=== PATIENT | male | born 1960 | race American Indian/Alaskan Native ===

== ENCOUNTER 2018-03-15 14:42 | Inpatient (IN) | payer BC, OTHER ==
[2018-03-15 15:35] LABS: Hematocrit 28.6 % (35.5-45.6); Hemoglobin 9.9 gm/dl (11.8-15.2); Mean Corpuscular HGB Conc 35 % (32-34); Mean Corpuscular Volume 95 fl (84-94); Platelet Count 374 K/mm3 (140-440); Red Cell Distribution Width 14.6 % (13.2-15.2)
[2018-03-15] MEDS ORDERED: NACL 0.9% 1000 ML 1,000 ML IV ONE (15:35)
[2018-03-15] MEDS ORDERED: PROTONIX IV ONE (15:37)
--- NOTE | 2018-03-15 15:40 | Emergency Department Report ---
Addendum entered and electronically signed by LUIS NEAL NP 03/15/18 17:12: NOTE- HR INC W AMBULATION WAS DETECTED AFTER 1 L NS PT UDPATED ON ADMIT Original Note: ED GI Bleed HPI - General Chief complaint: GI Bleed Stated complaint: BLOODY STOOL Time Seen by Provider: 03/15/18 15:21 Source: patient, RN notes reviewed, old records reviewed Mode of arrival: Ambulatory Limitations: No Limitations - History of Present Illness Initial comments: Patient is a 57-year-old -Portuguese male who comes to the ER today complaining of vomiting dark blood yesterday and dark stools today. He states that the vomiting was bright red and he has not vomited today. He states that the stool is black/dark purple. Patient drinks alcohol daily. He also endorses chest pain and shortness of breath with activity. He also has dizziness when changes position rapidly. He has a history of GI bleeding in the past. Also noted history for GERD and he takes Zantac [id number] as needed. MD complaint: coffee ground emesis, melena -: Sudden, days(s) Severity scale (0 -10): 0 Quality: painless Consistency: intermittent Improves with: none Worsens with: none Context: history of GI bleed, alcohol abuse Associated Symptoms: shortness of breath, weakness, other (chest pain) - Related Data Allergies Allergy/AdvReac Type Severity Reaction Status Date / Time No Known Allergies Allergy Verified 03/15/18 14:48 ED Review of Systems ROS: Stated complaint: BLOODY STOOL Other details as noted in HPI Comment: All other systems reviewed and negative Constitutional: denies: chills Eyes: denies: eye pain ENT: denies: throat pain Respiratory: denies: orthopnea Cardiovascular: chest pain, dyspnea on exertion Endocrine: denies: flushing Gastrointestinal: as per HPI, hematemesis, melena. denies: abdominal pain, nausea, vomiting, diarrhea, constipation Genitourinary: denies: urgency Musculoskeletal: denies: back pain Skin: denies: rash Neurological: as per HPI, weakness, other (dizzy) Psychiatric: denies: depression Hematological/Lymphatic: denies: easy bleeding ED Past Medical Hx - Past Medical History Hx GERD: Yes Additional medical history: HX GIB IN THE PAST. 2014 NO VARICIES ON EGD. DAILY ETOH - Surgical History Additional Surgical History: hernia - Family History Family history: no significant - Social History Smoking Status: Current Every Day Smoker Substance Use Type: Alcohol, Marijuana ED Physical Exam - General Limitations: No Limitations General appearance: alert, cachectic - Head Head exam: Present: atraumatic - Eye Eye exam: Present: normal appearance, PERRL Pupils: Present: normal accommodation - ENT ENT exam: Present: mucous membranes moist - Neck Neck exam: Present: normal inspection - Respiratory Respiratory exam: Present: normal lung sounds bilaterally - Cardiovascular Cardiovascular Exam: Present: regular rate, tachycardia (ON ADMIT), normal heart sounds - GI/Abdominal GI/Abdominal exam: Present: soft, normal bowel sounds. Absent: distended, tenderness, guarding, rebound, rigid, diminished bowel sounds - Rectal Rectal exam: Present: heme (+) stool, other (MAROON COLORED STOOL ON RECTAL EXAM; NO HEMORRHOIDS). Absent: hemorrhoids - Extremities Exam Extremities exam: Present: normal inspection, full ROM - Back Exam Back exam: Present: normal inspection, full ROM - Neurological Exam Neurological exam: Present: alert, oriented X3, normal gait - Psychiatric Psychiatric exam: Present: normal affect, normal mood - Skin Skin exam: Present: warm, dry, intact ED Course Vital Signs 03/15/18 14:51 Temperature 99.0 F Pulse Rate 116 H Respiratory 18 Rate Blood Pressure 110/75 [Left] O2 Sat by Pulse 100 Oximetry - Reevaluation(s) Reevaluation #1: 03/15/18 17:[address] RAMIREZ WHO WILL EVAL PATIENT ED Medical Decision Making - Lab Data Result diagrams: 03/15/18 15:17 03/15/18 15:17 - EKG Data -: EKG Interpreted by Ri EKG shows normal: sinus rhythm Rate: normal - EKG Data Interpretation: no acute changes - Medical Decision Making TO ER WITH HX VOMITING BLOOD AND DARK STOOLS DAILY ETOH HX GIB ZANTAC OTC AT HOME NO PCP ILL APPEARING STOOL HEME POS RECTAL VAULT WITH MAROON STOOLS PT WHILE LAYING HAS A HR IN 60'S WHEN HE IS STOOD AND AMBULATED HR TO 114 THIS IS CONSISTENT WITH HPI. PT STATES LONG HE RESTS HE IS OK BUT IF HE EVEN MOVES AND TURNS OVER IN BED HE HAS SOB. DISCUSSED WITH DR SANTOS 1640 DR RAMIREZ TO EVALUATE THE PATIENT Labs 0103/15/18 03/15/18 15:17 15:17 15:17 WBC 6.9 RBC 3.00 L Hgb 9.9 L Hct 28.6 L MCV 95 H MCH 33 H MCHC 35 H RDW 14.6 Plt Count 374 PT INR APTT Sodium 139 Potassium 4.4 Chloride 100.9 Carbon Dioxide 28 Anion Gap 15 BUN 25 H Creatinine 1.0 Estimated GFR > 60 BUN/Creatinine Ratio 25 Glucose 112 H Calcium 8.7 Total Bilirubin 0.20 AST 19 ALT 21 Alkaline Phosphatase 36 Troponin T < 0.010 Total Protein 5.8 L Albumin 3.7 L Albumin/Globulin Ratio 1.8 Lipase 27 Blood Type Antibody Screen 03/15/18 03/15/18 15:36 15:36 WBC RBC Hgb Hct MCV MCH MCHC RDW Plt Count PT 12.8 INR 0.92 APTT 21.3 L Sodium Potassium Chloride Carbon Dioxide Anion Gap BUN Creatinine Estimated GFR BUN/Creatinine Ratio Glucose Calcium Total Bilirubin AST ALT Alkaline Phosphatase Troponin T Total Protein Albumin Albumin/Globulin Ratio Lipase Blood Type A POSITIVE Antibody Screen Negative - Differential Diagnosis GIB Critical care attestation.: If time is entered above; I have spent that time in minutes in the direct care of this critically ill patient, excluding procedure time. ED Disposition Clinical Impression: GIB (gastrointestinal bleeding), ETOH abuse Disposition: DC-09 OP ADMIT IP TO THIS HOSP Is pt being admited?: Yes Does the pt Need Aspirin: No Condition: Stable Time of Disposition: 16:54
[2018-03-15 15:44] LABS: Alanine Aminotransferase 21 units/L (7-56); Albumin 3.7 g/dL (3.9-5); BUN/Creatinine Ratio 25; Blood Urea Nitrogen 25 mg/dL (9-20); Calcium 8.7 mg/dL (8.4-10.2); Hemolysis Index 1
[2018-03-15 16:01] LABS: INR 0.92 (0.87-1.13); Partial Thromboplastin Time 21.3 Sec. (24.2-36.6)
--- NOTE | 2018-03-15 16:38 | Emergency Department Report ---
Blank Doc - Documentation Documentation: Patient is a 57-year-old alcoholic who is here secondary to GI bleed. Patient's hemoglobin is above the threshold for emergent transfusion however patient does have signs of active bleed at this time. Patient's heart rate is within normal limits with lying still however with standing and walking he was very tachycardic. Patient to be admitted to the hospitalist at this time.
[2018-03-15] MEDS ORDERED: VITAMIN B-1 100 MG, FOLVITE 1 MG, INFUVITE 10 ML in NACL 0.9% 1000 ML 1,000 ML IV ONE (17:13)
--- NOTE | 2018-03-15 22:00 | XRay Report ---
FINAL REPORT EXAM: XR CHEST ROUTINE 2V HISTORY: pain TECHNIQUE: 2 views of the chest. PRIORS: None. FINDINGS: The cardiomediastinal silhouette appears normal. The lungs are clear. The bones and soft tissues are unremarkable. IMPRESSION: No evidence of acute cardiopulmonary disease
[2018-03-15] MEDS ORDERED: ZOFRAN IV PRN (23:40)
[2018-03-15] MEDS ORDERED: SODIUM CHLORIDE FLUSH SYRINGE 10 ML IV PRN (23:40)
[2018-03-15] MEDS ORDERED: DILAUDID IV PRN (23:40)
[2018-03-15] MEDS ORDERED: REGLAN PO PRN (23:40)
[2018-03-15] MEDS ORDERED: TYLENOL PO PRN (23:40)
--- NOTE | 2018-03-15 23:40 | History and Physical Report ---
History of Present Illness Date of examination: 03/15/18 Date of admission: 03/15/18 18:33 Chief complaint: Vomiting blood and dark stools since yesterday History of present illness: 57-year-old -[place]in[place] male who comes to the ER complaining of vomiting dark blood yesterday and dark stools today. He states that the vomiting was bright red and he has not vomited today. He states that the stool is black. Patient drinks alcohol daily. He also endorses chest pain and shortness of breath with activity.History of GI bleeding in the past. Feels light headed on standing.No syncope. Past Medical History Hx GERD: Yes Additional medical history: HX GIB IN THE PAST. 2014 NO VARICIES ON EGD. DAILY ETOH Surgical History Additional Surgical History: hernia Family History Family history: no significant Social History Smoking Status: Current Every Day Smoker Substance Use Type: Alcohol every day Marijuana Review of Systems ROS: Stated complaint: BLOODY STOOL Other details as noted in HPI Comment: All other systems reviewed and negative Constitutional: denies: chills Eyes: denies: eye pain ENT: denies: throat pain Respiratory: denies: orthopnea Cardiovascular: chest pain, dyspnea on exertion Endocrine: denies: flushing Gastrointestinal: as per HPI, hematemesis, melena. denies: abdominal pain, nausea, vomiting, diarrhea, constipation Genitourinary: denies: urgency Musculoskeletal: denies: back pain Skin: denies: rash Neurological: as per HPI, weakness, other (dizzy) Psychiatric: denies: depression Hematological/Lymphatic: denies: easy bleeding Medications and Allergies Allergies Allergy/AdvReac Type Severity Reaction Status Date / Time No Known Allergies Allergy Verified 03/15/18 14:48 Exam - Constitutional Vitals: Temp Pulse Resp BP Pulse Ox 98.6 F 86 20 94/58 96 03/15/18 21:03 03/15/18 21:03 03/15/18 21:03 03/15/18 21:03 03/15/18 21:03 General appearance: Present: no acute distress, well-nourished - EENT Eyes: Present: PERRL ENT: hearing intact, clear oral mucosa - Neck Neck: Present: supple, normal ROM - Respiratory Respiratory effort: normal Respiratory: bilateral: CTA - Cardiovascular Heart rate: 66 Rhythm: regular Heart Sounds: Present: S1 & S2. Absent: rub, click - Extremities Extremities: pulses symmetrical, No edema Peripheral Pulses: within normal limits - Abdominal General gastrointestinal: Present: soft, non-tender, non-distended, normal bowel sounds Male genitourinary: Present: normal - Rectal Rectal Exam: stool dark (OB positive) - Integumentary Integumentary: Present: clear, warm, dry - Musculoskeletal Musculoskeletal: gait normal, strength equal bilaterally - Psychiatric Psychiatric: appropriate mood/affect, intact judgment & insight - Neurologic Neurologic: CNII-XII intact, moves all extremities - Allied Health Allied health notes reviewed: nursing, case management Results - Labs CBC & Chem 7: 03/16/18 04:03 03/16/18 04:03 Labs: Laboratory Last Values WBC 6.9 K/mm3 (4.5-11.0) 03/15/18 15:17 RBC 3.00 M/mm3 (3.65-5.03) L 03/15/18 15:17 Hgb 9.9 gm/dl (11.8-15.2) L 03/15/18 15:17 Hct 28.6 % (35.5-45.6) L 03/15/18 15:17 MCV 95 fl (84-94) H 03/15/18 15:17 MCH 33 pg (28-32) H 03/15/18 15:17 MCHC 35 % (32-34) H 03/15/18 15:17 RDW 14.6 % (13.2-15.2) 03/15/18 15:17 Plt Count 374 K/mm3 (140-440) 03/15/18 15:17 PT 12.8 Sec. (12.2-14.9) 03/15/18 15:36 INR 0.92 (0.87-1.13) 03/15/18 15:36 APTT 21.3 Sec. (24.2-36.6) L 03/15/18 15:36 Sodium 139 mmol/L (137-145) 03/15/18 15:17 Potassium 4.4 mmol/L (3.6-5.0) 03/15/18 15:17 Chloride 100.9 mmol/L (98-107) 03/15/18 15:17 Carbon Dioxide 28 mmol/L (22-30) 03/15/18 15:17 Anion Gap 15 mmol/L 03/15/18 15:17 BUN 25 mg/dL (9-20) H 03/15/18 15:17 Creatinine 1.0 mg/dL (0.8-1.5) 03/15/18 15:17 Estimated GFR > 60 ml/min 03/15/18 15:17 BUN/Creatinine Ratio 25 % 03/15/18 15:17 Glucose 112 mg/dL (75-100) H 03/15/18 15:17 Calcium 8.7 mg/dL (8.4-10.2) 03/15/18 15:17 Total Bilirubin 0.20 mg/dL (0.1-1.2) 03/15/18 15:17 AST 19 units/L (5-40) 03/15/18 15:17 ALT 21 units/L (7-56) 03/15/18 15:17 Alkaline Phosphatase 36 units/L (35-129) 03/15/18 15:17 Troponin T < 0.010 ng/mL (0.00-0.029) 03/15/18 15:17 Total Protein 5.8 g/dL (6.3-8.2) L 03/15/18 15:17 Albumin 3.7 g/dL (3.9-5) L 03/15/18 15:17 Albumin/Globulin Ratio 1.8 % 03/15/18 15:17 Lipase 27 units/L (13-60) 03/15/18 15:17 Blood Type A POSITIVE 03/15/18 15:36 Antibody Screen Negative 03/15/18 15:36 - Imaging and Cardiology EKG: report reviewed (NSR 66/min) Chest x-ray: report reviewed (NAF) Assessment and Plan Advance Directives: Yes (Full code) VTE prophylaxis?: Mechanical Plan of care discussed with patient/family: Yes - Patient Problems (1) Upper GI bleed Current Visit: No Status: Acute Plan to address problem: IV protonix and monitor H/htransfuse if necessary GI consult (2) EtOH dependence Current Visit: Yes Status: Chronic Qualifiers: Substance use status: unspecified alcohol-induced disorder Qualified Code(s): F10.29 - Alcohol dependence with unspecified alcohol-induced disorder Plan to address problem: CIWA protocol to prevent DT's (3) Symptomatic anemia Current Visit: No Status: Acute Plan to address problem: Transfuse one unit prbc (4) GERD (gastroesophageal reflux disease) Current Visit: Yes Status: Acute (5) GERD (gastroesophageal reflux disease) Current Visit: Yes Status: Chronic Qualifiers: Esophagitis presence: with esophagitis Qualified Code(s): K21.0 - Gastro- esophageal reflux disease with esophagitis Plan to address problem: PPI's (6) DVT prophylaxis Current Visit: Yes Status: Acute Plan to address problem: On Scd's
[2018-03-15] MEDS ORDERED: ATIVAN IV PRN ×3 (23:45)
[2018-03-15] MEDS ORDERED: LIBRIUM PO PRN ×2 (23:45)
[2018-03-16] MEDS: PROTONIX IV SCH ×3 (00:22→21:38)
[2018-03-16] MEDS: NACL 0.9% 1000 ML 1,000 ML IV SCH ×2 (00:23→15:20)
[2018-03-16 00:31] LABS: Hemoglobin 8.1 gm/dl (11.8-15.2)
[2018-03-16 02:42] LABS: Bilirubin,Urine NEG (Negative); Blood,Urine NEG (Negative); Color,Urine Yellow (Yellow); Mucus,Urine 1+ /HPF; Protein,Urine <15 mg/dL mg/dL (Negative); RBC,Urine < 1.0 /HPF (0.0-6.0); Urobilinogen,Urine < 2.0 mg/dL (<2.0)
[2018-03-16 05:46] LABS: Mean Corpuscular HGB Conc 35 % (32-34); Mean Corpuscular Volume 98 fl (84-94); Platelet Count 316 K/mm3 (140-440); Red Blood Count 2.35 M/mm3 (3.65-5.03)
[2018-03-16 06:04] LABS: Alanine Aminotransferase 17 units/L (7-56); Albumin 2.9 g/dL (3.9-5); BUN/Creatinine Ratio 30; Blood Urea Nitrogen 21 mg/dL (9-20); Calcium 7.7 mg/dL (8.4-10.2); Hemolysis Index 7
[2018-03-16] MEDS ORDERED: NACL 0.9% 500 ML 500 ML IV NR (08:00)
[2018-03-16] MEDS: SODIUM CHLORIDE FLUSH SYRINGE 10 ML IV SCH ×2 (09:20→21:38)
--- NOTE | 2018-03-16 10:45 | Gastroenterology Consultation ---
Addendum entered and electronically signed by TAWANA GIVENS MD 03/16/18 15:17: pt seen and examined, chart reviewed, consult below reviewed - pt presents w/ signs possible GI bleed, denies other complaints - denies other complaints vss p.e.: nad abd: soft, nt, ns - plan EGD/colonoscopy in am - other rec as below Original Note: History of Present Illness - Reason for Consult Consult date: 03/16/18 GI bleed Requesting physician: ELISEO RITCHIE - History of Present Illness Patient is a 57 y/o male with PMH of ETOH abuse who presented to ED with c/o vomiting blood and blood in stool to which GI has been consulted. This morning patient was resting in bed w/o acute distress. He reports vomiting x 1 episode on Wednesday with bright red blood, along with seeing dark red blood in stool. No active signs of bleeding overnight or this am per pt/nursing. Denies fever, CP, SOB, abd pain, N/V, dysphagia, diarrhea, or constipation. No NSAID use. No hx of PUD or known liver disease but admits to heavy daily alcohol consumption. Patient is previously known to our service from similar symptoms in 2014. He underwent an EGD at this time that showed an irregular Z-line but no ulcer or varices. An outpatient colonoscopy was recommended, however he did not follow up with having procedure done as an outpatient. No known Fhx of GI cancers. Past History Past Medical History: GERD Past Surgical History: hernia repair, Other (EGD 2014) Social history: smoking, alcohol abuse, other (Marijuana) Family history: diabetes, hypertension Medications and Allergies Allergies Allergy/AdvReac Type Severity Reaction Status Date / Time No Known Allergies Allergy Verified 03/15/18 14:48 Active Meds: Active Medications Acetaminophen (Tylenol) 650 mg PO Q4H PRN PRN Reason: Pain MILD(1-3)/Fever >100.5/TAN Chlordiazepoxide HCl (Librium) 100 mg PO Q1H PRN PRN Reason: CIWA-Ar 16-25 Chlordiazepoxide HCl (Librium) 50 mg PO Q1H PRN PRN Reason: CIWA-Ar 8-15 Hydromorphone HCl (Dilaudid) 0.5 mg IV Q3H PRN PRN Reason: Pain , Severe (7-10) Sodium Chloride (Nacl 0.9% 1000 Ml) 1,000 mls @ 100 mls/hr IV DIRECT [facility] Last Admin: 03/16/18 00:23 Dose: 100 mls/hr Documented by: Sodium Chloride (Nacl 0.9% 500 Ml) 500 mls @ 0 mls/hr IV ONCE NR Stop: 03/16/18 18:59 Last Admin: 03/16/18 09:19 Dose: 50 mls/hr Documented by: Lorazepam (Ativan) 2 mg IV Q1H PRN PRN Reason: CIWA-Ar 8-15 Lorazepam (Ativan) 4 mg IV Q1H PRN PRN Reason: CIWA-Ar 16-25 Lorazepam (Ativan) 4 mg IV Q15MIN PRN PRN Reason: CIWA-Ar >25 Metoclopramide HCl (Reglan) 10 mg PO Q6H PRN PRN Reason: Nausea And Vomiting Ondansetron HCl (Zofran) 4 mg IV Q3H PRN PRN Reason: Nausea And Vomiting Pantoprazole Sodium (Protonix) 40 mg IV BID [facility] Last Admin: 03/16/18 09:19 Dose: 40 mg Documented by: Sodium Chloride (Sodium Chloride Flush Syringe 10 Ml) 10 ml IV BID [facility] Last Admin: 03/16/18 09:20 Dose: 10 ml Documented by: Sodium Chloride (Sodium Chloride Flush Syringe 10 Ml) 10 ml IV PRN PRN PRN Reason: LINE FLUSH medications reviewed/updated as required Review of Systems - Review of Systems All systems: negative Gastrointestinal: hematemesis, other (blood in stool) Exam - Constitutional Vital Signs: Temp Pulse Resp BP Pulse Ox 98.0 F 66 20 86/53 100 03/16/18 04:14 03/16/18 04:14 03/16/18 04:14 03/16/18 04:14 03/16/18 04:14 General appearance: no acute distress - EENT Eyes: PERRL, EOM intact ENT: hearing intact - Respiratory Respiratory: bilateral: CTA - Cardiovascular Rhythm: regular Heart Sounds: Present: S1 & S2 - Gastrointestinal General gastrointestinal: Present: soft, non-tender, non-distended, normal bowel sounds - Neurologic Neurological: alert and oriented x3 - Labs CBC & Chem 7: 03/16/18 04:03 03/16/18 04:03 Lab Results: Laboratory Results - last 24 hr 03/15/18 03/15/18 03/15/18 15:17 15:17 15:17 WBC 6.9 RBC 3.00 L Hgb 9.9 L Hct 28.6 L MCV 95 H MCH 33 H MCHC 35 H RDW 14.6 Plt Count 374 Lymph % (Auto) [place] % (Auto) Eos % (Auto) Baso % (Auto) Lymph # [place] # Eos # Baso # Seg Neutrophils % Seg Neutrophils # PT INR APTT Sodium 139 Potassium 4.4 Chloride 100.9 Carbon Dioxide 28 Anion Gap 15 BUN 25 H Creatinine 1.0 Estimated GFR > 60 BUN/Creatinine Ratio 25 Glucose 112 H Hemoglobin A1c Calcium 8.7 Total Bilirubin 0.20 AST 19 ALT 21 Alkaline Phosphatase 36 Troponin T < 0.010 Total Protein 5.8 L Albumin 3.7 L Albumin/Globulin Ratio 1.8 Lipase 27 Urine Color Urine Turbidity Urine pH Ur Specific [place] Urine Protein Urine Glucose (UA) Urine Ketones Urine Blood Urine Nitrite Urine Bilirubin Urine Urobilinogen Ur Leukocyte Esterase Urine WBC (Auto) Urine RBC (Auto) U Epithel Cells (Auto) Urine Mucus Blood Type Antibody Screen Crossmatch 03/15/18 03/15/18 03/15/18 15:36 15:36 Unknown WBC RBC Hgb Hct MCV MCH MCHC RDW Plt Count Lymph % (Auto) [place] % (Auto) Eos % (Auto) Baso % (Auto) Lymph # [place] # Eos # Baso # Seg Neutrophils % Seg Neutrophils # PT 12.8 INR 0.92 APTT 21.3 L Sodium Potassium Chloride Carbon Dioxide Anion Gap BUN Creatinine Estimated GFR BUN/Creatinine Ratio Glucose Hemoglobin A1c Calcium Total Bilirubin AST ALT Alkaline Phosphatase Troponin T Total Protein Albumin Albumin/Globulin Ratio Lipase Urine Color Yellow Urine Turbidity Clear Urine pH 5.0 Ur Specific [place] 1.024 Urine Protein <15 mg/dl Urine Glucose (UA) Neg Urine Ketones Neg Urine Blood Neg Urine Nitrite Neg Urine Bilirubin Neg Urine Urobilinogen < 2.0 Ur Leukocyte Esterase Neg Urine WBC (Auto) 2.0 Urine RBC (Auto) < 1.0 U Epithel Cells (Auto) < 1.0 Urine Mucus 1+ Blood Type A POSITIVE Antibody Screen Negative Crossmatch See Detail 03/16/18 03/16/18 03/16/18 00:23 04:03 04:03 WBC 6.1 RBC 2.35 L Hgb 8.1 L 8.0 L Hct 24.0 L 23.0 L MCV 98 H MCH 34 H MCHC 35 H RDW 15.0 Plt Count 316 Lymph % (Auto) Coater Operator [place] % (Auto) Coater Operator Eos % (Auto) Coater Operator Baso % (Auto) Coater Operator Lymph # Coater Operator [place]att # Coater Operator Eos # Coater Operator Baso # Coater Operator Seg Neutrophils % Coater Operator Seg Neutrophils # Coater Operator PT INR APTT Sodium 137 Potassium 4.0 Chloride 106.3 Carbon Dioxide 24 Anion Gap 11 BUN 21 H Creatinine 0.7 L Estimated GFR > 60 BUN/Creatinine Ratio 30 Glucose 98 Hemoglobin A1c Calcium 7.7 L Total Bilirubin < 0.20 AST 16 ALT 17 Alkaline Phosphatase 31 L Troponin T Total Protein 4.8 L Albumin 2.9 L Albumin/Globulin Ratio 1.5 Lipase Urine Color Urine Turbidity Urine pH Ur Specific [place] Urine Protein Urine Glucose (UA) Urine Ketones Urine Blood Urine Nitrite Urine Bilirubin Urine Urobilinogen Ur Leukocyte Esterase Urine WBC (Auto) Urine RBC (Auto) U Epithel Cells (Auto) Urine Mucus Blood Type Antibody Screen Crossmatch 03/16/18 04:03 WBC RBC Hgb Hct MCV MCH MCHC RDW Plt Count Lymph % (Auto) [place] % (Auto) Eos % (Auto) Baso % (Auto) Lymph # [place] # Eos # Baso # Seg Neutrophils % Seg Neutrophils # PT INR APTT Sodium Potassium Chloride Carbon Dioxide Anion Gap BUN Creatinine Estimated GFR BUN/Creatinine Ratio Glucose Hemoglobin A1c 5.5 Calcium Total Bilirubin AST ALT Alkaline Phosphatase Troponin T Total Protein Albumin Albumin/Globulin Ratio Lipase Urine Color Urine Turbidity Urine pH Ur Specific [place] Urine Protein Urine Glucose (UA) Urine Ketones Urine Blood Urine Nitrite Urine Bilirubin Urine Urobilinogen Ur Leukocyte Esterase Urine WBC (Auto) Urine RBC (Auto) U Epithel Cells (Auto) Urine Mucus Blood Type Antibody Screen Crossmatch Assessment and Plan 1.GI bleed (hematemesis/blood in stool) 2.anemia-chronic 3.ETOH abuse -plt WNL (316),INR 0.92 -LFTs WNL, BUN 21 -H/H 8.0/23.0 (H/H similar to labs in 2015) -continue to monitor H/H and transfuse as needed -hold blood thinning medications -patient reports vomiting bright red blood on Wednesday along with dark red blood in stool -no active signs of bleeding overnight or this am per pt/nursing-currently HD stable -EGD 2014 showed irregular z-line -etiology- likely upper source (ulcer vs varies vs other) vs lower source -will schedule for EGD/colonoscopy tomorrow -continue PPI -start on octreotide -okay to clears today, then NPO after MN -continue supportive care -will follow
[2018-03-16] MEDS ORDERED: SandoSTATIN 500 MCG in NACL 0.9% 100 ML IV SCH (13:00)
--- NOTE | 2018-03-16 14:50 | Progress Note ---
Assessment and Plan Assessment and plan: Acute blood loss anemia 2/2 GI bleed - H&H is stable - Continue blood transfusion at this time - monitor H/H GI bleed - Vision disease on PPI - Clear liquid diet - GI consulted and will do EGD and colonoscopy tomorrow, nothing by mouth after midnight, bowel prep DVT prophylaxis - On SCDs because of Gi bleed Disposition - Continue patient care History Interval history: Patient was seen and evaluated this morning, patient didn't have hematemesis or hematochezia. Hospitalist Physical - Physical exam Narrative exam: Not in cardiopulmonary distress. The patient appeared well nourished and normally developed. Vital signs as documented. Head exam is unremarkable. No scleral icterus . Neck is without jugular venous distension, thyromegaly, or carotid bruits. Lungs are clear to auscultation. Cardiac exam reveals regular rate and Rhythm. First and second heart sounds normal. No murmurs, rubs or gallops. Abdominal exam reveals normal bowel sounds, no masses, no organomegaly and no aortic enlargement. Extremities are nonedematous and both femoral and pedal pulses are normal. 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 No focal weakness. - Constitutional Vitals: Temp Pulse Resp BP Pulse Ox 97.5 F L 72 16 94/62 100 03/16/18 13:30 03/16/18 13:30 03/16/18 13:30 03/16/18 13:30 03/16/18 04:14 General appearance: Present: no acute distress, well-nourished Results - Labs CBC & Chem 7: 03/16/18 04:03 03/16/18 04:03 Labs: Laboratory Last Values WBC 6.1 K/mm3 (4.5-11.0) 03/16/18 04:03 RBC 2.35 M/mm3 (3.65-5.03) L 03/16/18 04:03 Hgb 8.0 gm/dl (11.8-15.2) L 03/16/18 04:03 Hct 23.0 % (35.5-45.6) L 03/16/18 04:03 MCV 98 fl (84-94) H 03/16/18 04:03 MCH 34 pg (28-32) H 03/16/18 04:03 MCHC 35 % (32-34) H 03/16/18 04:03 RDW 15.0 % (13.2-15.2) 03/16/18 04:03 Plt Count 316 K/mm3 (140-440) 03/16/18 04:03 Lymph % (Auto) Lime Mixer Tender 03/16/18 04:03 [place] % (Auto) Lime Mixer Tender 03/16/18 04:03 Eos % (Auto) Lime Mixer Tender 03/16/18 04:03 Baso % (Auto) Lime Mixer Tender 03/16/18 04:03 Lymph # Lime Mixer Tender 03/16/18 04:03 [place] # Lime Mixer Tender 03/16/18 04:03 Eos # Lime Mixer Tender 03/16/18 04:03 Baso # Lime Mixer Tender 03/16/18 04:03 Seg Neutrophils % Lime Mixer Tender 03/16/18 04:03 Seg Neutrophils # Lime Mixer Tender 03/16/18 04:03 PT 12.8 Sec. (12.2-14.9) 03/15/18 15:36 INR 0.92 (0.87-1.13) 03/15/18 15:36 APTT 21.3 Sec. (24.2-36.6) L 03/15/18 15:36 Sodium 137 mmol/L (137-145) 03/16/18 04:03 Potassium 4.0 mmol/L (3.6-5.0) 03/16/18 04:03 Chloride 106.3 mmol/L (98-107) 03/16/18 04:03 Carbon Dioxide 24 mmol/L (22-30) 03/16/18 04:03 Anion Gap 11 mmol/L 03/16/18 04:03 BUN 21 mg/dL (9-20) H 03/16/18 04:03 Creatinine 0.7 mg/dL (0.8-1.5) L 03/16/18 04:03 Estimated GFR > 60 ml/min 03/16/18 04:03 BUN/Creatinine Ratio 30 % 03/16/18 04:03 Glucose 98 mg/dL (75-100) 03/16/18 04:03 Hemoglobin A1c 5.5 % (4-6) 03/16/18 04:03 Calcium 7.7 mg/dL (8.4-10.2) L 03/16/18 04:03 Total Bilirubin < 0.20 mg/dL (0.1-1.2) 03/16/18 04:03 AST 16 units/L (5-40) 03/16/18 04:03 ALT 17 units/L (7-56) 03/16/18 04:03 Alkaline Phosphatase 31 units/L (35-129) L 03/16/18 04:03 Troponin T < 0.010 ng/mL (0.00-0.029) 03/15/18 15:17 Total Protein 4.8 g/dL (6.3-8.2) L 03/16/18 04:03 Albumin 2.9 g/dL (3.9-5) L 03/16/18 04:03 Albumin/Globulin Ratio 1.5 % 03/16/18 04:03 Lipase 27 units/L (13-60) 03/15/18 15:17 Urine Color Yellow (Yellow) 03/15/18 Unknown Urine Turbidity Clear (Clear) 03/15/18 Unknown Urine pH 5.0 (5.0-7.0) 03/15/18 Unknown Ur Specific [place] 1.024 (1.003-1.030) 03/15/18 Unknown Urine Protein <15 mg/dl mg/dL (Negative) 03/15/18 Unknown Urine Glucose (UA) Neg mg/dL (Negative) 03/15/18 Unknown Urine Ketones Neg mg/dL (Negative) 03/15/18 Unknown Urine Blood Neg (Negative) 03/15/18 Unknown Urine Nitrite Neg (Negative) 03/15/18 Unknown Urine Bilirubin Neg (Negative) 03/15/18 Unknown Urine Urobilinogen < 2.0 mg/dL (<2.0) 03/15/18 Unknown Ur Leukocyte Esterase Neg (Negative) 03/15/18 Unknown Urine WBC (Auto) 2.0 /HPF (0.0-6.0) 03/15/18 Unknown Urine RBC (Auto) < 1.0 /HPF (0.0-6.0) 03/15/18 Unknown U Epithel Cells (Auto) < 1.0 /HPF (0-13.0) 03/15/18 Unknown Urine Mucus 1+ /HPF 03/15/18 Unknown Blood Type A POSITIVE 03/15/18 15:36 Antibody Screen Negative 03/15/18 15:36 Crossmatch See Detail 03/15/18 15:36 Nutrition/Malnutrition Assess - Dietary Evaluation Nutrition/Malnutrition Findings: Nutrition Notes Start: 03/16/18 13:32 Freq: Status: Active Protocol: Document 03/16/18 13:32 RAYSA (Rec: 03/16/18 13:40 RAYSA [email or web address] [email or web address]) Nutrition Notes Need for Assessment generated from: dupligraph operator MST Initial or Follow up Assessment Other Pertinent Diagnosis Upper GIB, anemia, EtOH abuse Current Diet Cl liq Labs/Tests Reviewed Pertinent Medications Reviewed Height 5 ft 6 in Weight 71.2 kg Usual Body Weight 75 kg [place] Body Weight (kg) 64.54 BMI 25.3 Intake Prior to Admission Good Weight change and time frame Pt reports unintentional 5% wt loss over past month Weight Status Appropriate Subjective/Other Information Pt screened for malnutrition risk (wt loss, poor PO intake/ appetite). He reports good appetite though. Currently on CIWA protocol. GI consulted. Pt with poor dentition at bottom, but reports no chewing difficulty. Burn Absent Trauma Absent GI Symptoms None Food Allergy No Skin Integrity/Comment Jeff[place] 22 Current % PO Negligible Interpretation of Weight Loss (non- 5% in 1 month severe) Fluid Accumulation N/A Reduced Activity Therapist Strength N/A (non-severe) Protein-Calorie Malnutrition N\A #1 Nutrition Diagnosis Unintended weight loss Etiology hx of EtOH dependence As Evidenced by Signs and Symptoms pt with 5% wt loss over past month Is patient on ventilator? No Is Patient Ambulatory and/or Out of Bed Yes REE-([facility]-ambulatory/OOB) [ 1936.675 NUTR.[id number]] Calculation [facility] for [facility]ations [facility] Additional Notes Pro needs 0.8-1g/k-71g/ day Fluid needs 1ml/kcal Nutrition Intervention Change Diet Order: Advance diet when medically feasible Goal #1 Diet advancement to meet nutrient needs Goal #2 Wt maintenance Anticipated Discharge Needs: None identified at this time Follow-Up By: 03/18/18 Additional Comments F/U: diet advancement, GI consult/POC
[2018-03-16 16:51] LABS: Hemoglobin 8.7 gm/dl (11.8-15.2)
[2018-03-16 22:59] LABS: Hematocrit 25.7 % (35.5-45.6); Hemoglobin 8.6 gm/dl (11.8-15.2)
[2018-03-17 06:18] LABS: Basophils % (Auto) 0.9 % (0.0-1.8); Eosinophils # (Auto) 0.3 K/mm3 (0.0-0.4); Eosinophils % (Auto) 6.2 % (0.0-4.3); Hematocrit 26.5 % (35.5-45.6); Hemoglobin 8.9 gm/dl (11.8-15.2); Lymphocytes # (Auto) 2.2 K/mm3 (1.2-5.4); Lymphocytes % (Auto) 41.9 % (13.4-35.0); Mean Corpuscular HGB Conc 34 % (32-34); Mean Corpuscular Volume 96 fl (84-94); Monocytes # (Auto) 0.3 K/mm3 (0.0-0.8); Monocytes % (Auto) 5.5 % (0.0-7.3); Platelet Count 318 K/mm3 (140-440); Red Blood Count 2.76 M/mm3 (3.65-5.03); Red Cell Distribution Width 15.2 % (13.2-15.2)
[2018-03-17] MEDS: NACL 0.9% 1000 ML 1,000 ML IV SCH ×3 (07:39→21:33)
--- NOTE | 2018-03-17 10:14 | Event Note ---
Date: 03/17/18 Patient did not receive colon prep overnight. H/H stable with no active signs of bleeding. Will proceed with EGD today.
[2018-03-17] MEDS: PROTONIX IV SCH ×2 (12:20→21:33)
[2018-03-17] MEDS: SODIUM CHLORIDE FLUSH SYRINGE 10 ML IV SCH ×2 (12:21→21:34)
--- NOTE | 2018-03-17 14:44 | Progress Note ---
Assessment and Plan Assessment and plan: Acute blood loss anemia 2/2 GI bleed - H&H is stable - No blood transfusion at this time - monitor H/H GI bleed - Vision disease on PPI - Clear liquid diet - GI consulted and will do EGD today - Colonoscopy will be rescheduled for tomorrow because patient was not preped DVT prophylaxis - On SCDs because of Gi bleed Disposition - Continue patient care History Interval history: Patient was seen and evaluated this morning, patient didn't have hematemesis or hematochezia. Hospitalist Physical - Physical exam Narrative exam: Not in cardiopulmonary distress. The patient appeared well nourished and normally developed. Vital signs as documented. Head exam is unremarkable. No scleral icterus . Neck is without jugular venous distension, thyromegaly, or carotid bruits. Lungs are clear to auscultation. Cardiac exam reveals regular rate and Rhythm. First and second heart sounds normal. No murmurs, rubs or gallops. Abdominal exam reveals normal bowel sounds, no masses, no organomegaly and no aortic enlargement. Extremities are nonedematous and both femoral and pedal pulses are normal. 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 No focal weakness. - Constitutional Vitals: Temp Pulse Resp BP Pulse Ox 98.1 F 57 L 16 125/85 100 03/17/18 13:59 03/17/18 13:59 03/17/18 13:59 03/17/18 13:59 03/17/18 13:59 General appearance: Present: no acute distress, well-nourished Results - Labs CBC & Chem 7: 03/17/18 05:40 03/16/18 04:03 Labs: Laboratory Last Values WBC 5.3 K/mm3 (4.5-11.0) 03/17/18 05:40 RBC 2.76 M/mm3 (3.65-5.03) L 03/17/18 05:40 Hgb 8.9 gm/dl (11.8-15.2) L 03/17/18 05:40 Hct 26.5 % (35.5-45.6) L 03/17/18 05:40 MCV 96 fl (84-94) H 03/17/18 05:40 MCH 32 pg (28-32) 03/17/18 05:40 MCHC 34 % (32-34) 03/17/18 05:40 RDW 15.2 % (13.2-15.2) 03/17/18 05:40 Plt Count 318 K/mm3 (140-440) 03/17/18 05:40 Lymph % (Auto) 41.9 % (13.4-35.0) H 03/17/18 05:40 [place] % (Auto) 5.5 % (0.0-7.3) 03/17/18 05:40 Eos % (Auto) 6.2 % (0.0-4.3) H 03/17/18 05:40 Baso % (Auto) 0.9 % (0.0-1.8) 03/17/18 05:40 Lymph # 2.2 K/mm3 (1.2-5.4) 03/17/18 05:40 [place] # 0.3 K/mm3 (0.0-0.8) 03/17/18 05:40 Eos # 0.3 K/mm3 (0.0-0.4) 03/17/18 05:40 Baso # 0.0 K/mm3 (0.0-0.1) 03/17/18 05:40 Seg Neutrophils % 45.5 % (40.0-70.0) 03/17/18 05:40 Seg Neutrophils # 2.4 K/mm3 (1.8-7.7) 03/17/18 05:40 PT 12.8 Sec. (12.2-14.9) 03/15/18 15:36 INR 0.92 (0.87-1.13) 03/15/18 15:36 APTT 21.3 Sec. (24.2-36.6) L 03/15/18 15:36 Sodium 137 mmol/L (137-145) 03/16/18 04:03 Potassium 4.0 mmol/L (3.6-5.0) 03/16/18 04:03 Chloride 106.3 mmol/L (98-107) 03/16/18 04:03 Carbon Dioxide 24 mmol/L (22-30) 03/16/18 04:03 Anion Gap 11 mmol/L 03/16/18 04:03 BUN 21 mg/dL (9-20) H 03/16/18 04:03 Creatinine 0.7 mg/dL (0.8-1.5) L 03/16/18 04:03 Estimated GFR > 60 ml/min 03/16/18 04:03 BUN/Creatinine Ratio 30 % 03/16/18 04:03 Glucose 98 mg/dL (75-100) 03/16/18 04:03 Hemoglobin A1c 5.5 % (4-6) 03/16/18 04:03 Calcium 7.7 mg/dL (8.4-10.2) L 03/16/18 04:03 Total Bilirubin < 0.20 mg/dL (0.1-1.2) 03/16/18 04:03 AST 16 units/L (5-40) 03/16/18 04:03 ALT 17 units/L (7-56) 03/16/18 04:03 Alkaline Phosphatase 31 units/L (35-129) L 03/16/18 04:03 Troponin T < 0.010 ng/mL (0.00-0.029) 03/15/18 15:17 Total Protein 4.8 g/dL (6.3-8.2) L 03/16/18 04:03 Albumin 2.9 g/dL (3.9-5) L 03/16/18 04:03 Albumin/Globulin Ratio 1.5 % 03/16/18 04:03 Lipase 27 units/L (13-60) 03/15/18 15:17 Urine Color Yellow (Yellow) 03/15/18 Unknown Urine Turbidity Clear (Clear) 03/15/18 Unknown Urine pH 5.0 (5.0-7.0) 03/15/18 Unknown Ur Specific [place] 1.024 (1.003-1.030) 03/15/18 Unknown Urine Protein <15 mg/dl mg/dL (Negative) 03/15/18 Unknown Urine Glucose (UA) Neg mg/dL (Negative) 03/15/18 Unknown Urine Ketones Neg mg/dL (Negative) 03/15/18 Unknown Urine Blood Neg (Negative) 03/15/18 Unknown Urine Nitrite Neg (Negative) 03/15/18 Unknown Urine Bilirubin Neg (Negative) 03/15/18 Unknown Urine Urobilinogen < 2.0 mg/dL (<2.0) 03/15/18 Unknown Ur Leukocyte Esterase Neg (Negative) 03/15/18 Unknown Urine WBC (Auto) 2.0 /HPF (0.0-6.0) 03/15/18 Unknown Urine RBC (Auto) < 1.0 /HPF (0.0-6.0) 03/15/18 Unknown U Epithel Cells (Auto) < 1.0 /HPF (0-13.0) 03/15/18 Unknown Urine Mucus 1+ /HPF 03/15/18 Unknown Blood Type A POSITIVE 03/15/18 15:36 Antibody Screen Negative 03/15/18 15:36 Crossmatch See Detail 03/15/18 15:36 Nutrition/Malnutrition Assess - Dietary Evaluation Nutrition/Malnutrition Findings: Nutrition Notes Start: 03/16/18 13:32 Freq: Status: Active Protocol: Document 03/16/18 13:32 RAYSA (Rec: 03/16/18 13:40 RAYSA SRW- [email or web address]) Nutrition Notes Need for Assessment generated from: 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 He reports good appetite though. Currently on CIWA protocol. GI consulted. Pt with poor dentition at bottom, but reports no chewing difficulty. Burn Absent Trauma Absent GI Symptoms None Food Allergy No Skin Integrity/Comment [place] 22 Current % PO Negligible Interpretation of Weight Loss (non- 5% in 1 month severe) Fluid Accumulation N/A Reduced Land Surveyor Manager Strength N/A (non-severe) Protein-Calorie Malnutrition N\A #1 Nutrition Diagnosis Unintended weight loss Etiology hx of EtOH dependence As Evidenced by Signs and Symptoms pt with 5% wt loss over past month Is patient on ventilator? No Is Patient Ambulatory and/or Out of Bed Yes [facility] [ 1936.675 NUTR.MSJOOB] Calculation Used for Recommendations [place]-St Jeor Additional Notes Pro needs 0.8-1g/k-71g/ day Fluid needs 1ml/kcal Nutrition Intervention Change Diet Order: Advance diet when medically feasible Goal #1 Diet advancement to meet nutrient needs Goal #2 Wt maintenance Anticipated Discharge Needs: None identified at this time Follow-Up By: 03/18/18 Additional Comments F/U: diet advancement, GI consult/POC
--- NOTE | 2018-03-17 15:12 | Anesthesia Day of Surgery ---
Anesthesia Day of Surgery - Day of Surgery Patient Examined: Yes Patient H&P Reviewed: Yes Patient is NPO: Yes
--- NOTE | 2018-03-17 15:14 | Anesthesia Consultation ---
Anesthesia Consult and Med Hx Date of service: 03/17/18 - Airway Anesthetic Teeth Evaluation: Poor ROM Head & Neck: Adequate Mental/Hyoid Distance: Adequate Mallampati Class: Class II Intubation Access Assessment: Probably Good - Pre-Operative Health Status ASA Pre-Surgery Classification: ASA2 Proposed Anesthetic Plan: MAC - Pulmonary Hx Smoking: Yes (marijuana) - Central Nervous System Hx Psychiatric Problems: No - Gastrointestinal Hx Gastroesophageal Reflux Disease: Yes - Endocrine Hx End Stage Renal Disease: No - Hematic Hx Anemia: Yes - Other Systems Hx Alcohol Use: Yes (ETOH) Hx Cancer: No
[2018-03-17] MEDS ORDERED: WATER FOR IRRIG STERILE IR ONE (15:22)
[2018-03-17] MEDS ORDERED: XYLOCAINE 1% 20 mL ONE (15:23)
[2018-03-17] MEDS ORDERED: DIPRIVAN 10 MG/ML IV ONE ×2 (15:23)
--- NOTE | 2018-03-17 15:51 | Post Operative Note ---
Pre-op diagnosis: gi bleed Post-op diagnosis: same Findings: EGD: hiatal hernia - 1 cm somewhat cratered white based ulcer distal lesser curvature (bx's) - negative other Procedure: EGD Anesthesia: MAC Surgeon: TAWANA GIVENS Estimated blood loss: none Pathology: list Specimen disposition: to lab Condition: stable Disposition: floor
[2018-03-17 17:32] LABS: Hematocrit 27.4 % (35.5-45.6)
--- NOTE | 2018-03-17 18:25 | Operative Report ---
PROCEDURE: EGD with cold biopsies. INDICATION: 1. Coffee emesis. 2. Anemia. 3. GI bleed. MEDICATIONS: Propofol per POWDER MIXER. COMPLICATIONS: None. DESCRIPTION OF PROCEDURE: The patient was brought to procedure suite. The patient had procedure discussed with him at length. All risks, complications, and benefits discussed after which the patient signed for the procedure to be performed. The patient was placed in left lateral decubitus position. Mouth block was placed in the patient's oral cavity. After adequate sedation medication as above, the endoscope was introduced into the mouth and brought to the level of the second portion of duodenum. Retroflexion view performed. The patient's vital signs remained stable throughout the procedure. FINDINGS: There was noted to be a medium hiatal hernia at GE junction 40 cm from the gums. The esophagus otherwise appeared to be normal. A 1-1-1/4 cm somewhat cratered completely white base ulcer was noted at the distal lesser curvature before the incisura. Biopsies were taken of the antrum and sent to pathology. The remaining stomach showed some gastritis, but otherwise was benign. The duodenum appeared to be normal. Retroflexion view performed in the stomach showed no other pathology other than noted above. The patient tolerated the procedure well. No complications during the procedure. IMPRESSION: 1. Hiatal hernia. 2. Sizable white base ulcer as noted above with biopsies performed. 3. Otherwise, benign EGD. RECOMMENDATIONS: 1. Follow up biopsy results. 2. Stool for H. pylori, if positive, we will treat. 3. PPI daily. 4. Advance diet. 5. Okay to discharge from GI standpoint. 6. The patient is due for colonoscopy and can be scheduled as an outpatient. 7. We will sign off, call if needed. JOB# [id number] [facility]
[2018-03-18] MEDS: NACL 0.9% 1000 ML 1,000 ML IV SCH (06:00)
[2018-03-18] MEDS: SODIUM CHLORIDE FLUSH SYRINGE 10 ML IV SCH (11:36)
--- NOTE | 2018-03-18 11:49 | Discharge Summary ---
Providers - Providers Date of Admission: 03/15/18 18:33 Date of discharge: 03/18/18 Attending physician: ELISEO RITCHIE MD 03/16/18 07:52 Consult to Physician [CONS] Routine Comment: Consulting Provider: TAWANA GIVENS Physician Instructions: Reason For Exam: GI bleed Primary care physician: SUMIT CALDERON Hospitalization Reason for admission: upper GI bleed Condition: Stable Procedures: EGD: hiatal hernia - 1 cm somewhat cratered white based ulcer distal lesser curvature (bx's) - negative other Hospital course: 57-year-old -Citizen [place] male who comes to the ER complaining of vomiting dark blood yesterday and dark stools today. He stated that the vomiting was bright red. He stated that the stool was black. Patient drinks alcohol daily. He also endorsed chest pain and shortness of breath with activity. History of GI bleeding in the past. [place] light headed on standing. No syncope. Patient was admitted for the management of anemia 2/2 GI bleed. patient was treated with protonix. GI was consulted and did EGD. EGD: hiatal hernia - 1 cm somewhat cratered white based ulcer distal lesser curvature (bx's) - negative other GI cleared the patient to discharge home with protonix. patient with follow with [facility] as an O/P. Patient was hemodynamically stable at the time of discharge. Disposition: TO HOME OR SELFCARE Time spent for discharge: 32 minutes - Discharge Diagnoses (1) Alcohol abuse Status: Acute (2) GERD (gastroesophageal reflux disease) Status: Acute (3) Upper GI bleed Status: Acute (4) Anemia Status: Acute Qualifiers: Iron deficiency anemia type: chronic blood loss Core Measure Documentation - Palliative Care Palliative Care/ Comfort Measures: Not Applicable - Core Measures Any of the following diagnoses?: none Exam - Physical Exam Narrative exam: Not in cardiopulmonary distress. The patient appeared well nourished and normally developed. Vital signs as documented. Head exam is unremarkable. No scleral icterus . Neck is without jugular venous distension, thyromegaly, or carotid bruits. Lungs are clear to auscultation. Cardiac exam reveals regular rate and Rhythm. First and second heart sounds normal. No murmurs, rubs or gallops. Abdominal exam reveals normal bowel sounds, no masses, no organomegaly and no aortic enlargement. Extremities are nonedematous and both femoral and pedal pulses are normal. GLOBAL MARKETING SPECIALIST: Alert and oriented 3. No focal weakness. - Constitutional Vitals: Temp Pulse Resp BP Pulse Ox 98.1 F 62 16 89/44 98 03/18/18 04:46 03/18/18 04:46 03/18/18 04:46 03/18/18 04:46 03/18/18 04:46 Plan Activity: no restrictions Weight Bearing Status: Full Weight Bearing Diet: regular Follow up with: SUMIT CALDERON MD [Primary Care Provider] - 7 Days Prescriptions: Pantoprazole [Protonix TAB] 40 mg PO QDAY #30 tablet
[2018-03-18] MEDS ORDERED: PROTONIX PO SCH (12:00)
[2018-03-20 11:29] VITALS: BP 89/44
== END 2018-03-18 15:20 | disposition home or self-care (01) | DRG 378 ==
LOC: ED 14:42 → 3A 18:33
PROVIDERS: ADMIT Internal Medicine; ATTEND Internal Medicine
PROC: 0DB68ZX Excision of Stomach, Via Natural or Artificial Opening Endoscopic, Diagnostic (ICD-10-PCS; principal; 2018-03-17)
DX: K25.4 Chronic or unspecified gastric ulcer with hemorrhage (principal); F10.29 Alcohol dependence with unspecified alcohol-induced disorder; D62 Acute posthemorrhagic anemia; K21.9 Gastro-esophageal reflux disease without esophagitis; F12.90 Cannabis use, unspecified, uncomplicated; F17.200 Nicotine dependence, unspecified, uncomplicated; D64.9 Anemia, unspecified; K21.0 Gastro-esophageal reflux disease with esophagitis; K44.9 Diaphragmatic hernia without obstruction or gangrene; Y90.0 Blood alcohol level of less than 20 mg/100 ml; Z83.3 Family history of diabetes mellitus; Z82.49 Family history of ischemic heart disease and other diseases of the circulatory system
CPT/HCPCS: 36415; 71046; 80053; 81001; 82271; 83036; 83690; 84484; 85014; 85018; 85025; 85027; 85610; 85730; 86850; 86900; 86901; 86920; 88305; 88342; 93005; 93010; 96361; 96365; 96375; G0378; C9113; J2354; J2704; J3411; J7030; J7040; P9016